=== PATIENT | female | born 1940 | race Caucasian/White ===

== ENCOUNTER 2021-08-31 04:05 | Emergency (ER) | payer OTHER ==
[2021-08-31 04:47] VITALS: BMI 22.0
[2021-08-31 05:13] LABS: HEMATOCRIT 31.4 % (32.4-45.2); HEMOGLOBIN 10.3 GM/dL (10.7-15.3); MCH 28.3 pg (25.7-33.7); MCHC 32.9 g/dl (32.0-36.0); MEAN CELL VOLUME 86.2 fl (80-96); MEAN PLT VOLUME 8.6 fl (7.5-11.1); PLATELET COUNT 287 10^3/uL (134-434); RBC 3.65 M/mm3 (3.60-5.2); RDW 15.4 % (11.6-15.6); WHITE BLOOD COUNT 7.8 K/mm3 (4.0-10.0)
[2021-08-31 05:58] LABS: INR 0.95 (0.83-1.09); PROTHROMBIN TIME (PATIENT) 11.1 SEC (9.7-13.0)
[2021-08-31 06:01] LABS: ACTIVATED PTT 32.3 SECONDS (25.2-36.5)
[2021-08-31 08:54] VITALS: BP 152/71; PULSE 87; TEMP 98.2
== END 2021-08-31 09:12 ==
LOC: JER 04:05
DX: R04.0 Epistaxis (principal)
CPT/HCPCS: 36415; 85027; 85610; 85730; 99283-25

== ENCOUNTER 2022-07-08 21:45 | Inpatient (IN) | payer OTHER, BC ==
[2022-07-08 22:10] VITALS: BMI 23.8
[2022-07-09] MEDS ORDERED: ACETAMINOPHEN 1000 MG/100 ML BAG IVPB ONE (00:29)
[2022-07-09] MEDS ORDERED: ACETAMINOPHEN INJECTION 100 ML IVPB ONE ×2 (00:38→20:02)
[2022-07-09 00:55] LABS: EPI CELLS 14 /uL (0-25.1); HYALINE CASTS 1 /uL (0-3.1); URINE APPEARANCE CLEAR; URINE BACTERIA >9,000 /uL (0-1359); URINE BILIRUBIN NEGATIVE (NEGATIVE); URINE COLOR YELLOW; URINE GLUCOSE (UA) 3+ (NEGATIVE); URINE KETONE NEGATIVE (NEGATIVE); URINE LEUK ESTERASE 1+ (NEGATIVE); URINE NITRITE NEGATIVE (NEGATIVE); URINE PROTEIN NEGATIVE (NEGATIVE); URINE UROBILINOGEN 0.2 mg/dL (0.2-1.0); URINE WBC 32 /uL (0-25.8)
[2022-07-09 01:40] LABS: HEMATOCRIT 33.4 % (32.4-45.2); HEMOGLOBIN 11.1 GM/dL (10.7-15.3); MCH 29.7 pg (25.7-33.7); MCHC 33.1 g/dl (32.0-36.0); MEAN CELL VOLUME 89.7 fl (80-96); MEAN PLT VOLUME 8.5 fl (7.5-11.1); PLATELET COUNT 279 10^3/uL (134-434); RBC 3.72 M/mm3 (3.60-5.2); RDW 13.9 % (11.6-15.6); WHITE BLOOD COUNT 5.9 K/mm3 (4.0-10.0)
[2022-07-09] MEDS ORDERED: CEFTRIAXONE 1,000 MG in DEXTROSE 5%-WATER - 50 ML IVPB ONE (01:40)
[2022-07-09] MEDS ORDERED: DIPHTH,PERTUSS(ACELL),TET 0.5 ML DISP.SYRIN IM ONE ×2 (01:55→02:19)
[2022-07-09 01:56] LABS: INR 0.97 (0.83-1.09); PROTHROMBIN TIME (PATIENT) 11.2 SEC (9.7-13.0)
[2022-07-09 01:59] LABS: ACTIVATED PTT 35.1 SECONDS (25.2-36.5)
[2022-07-09] MEDS ORDERED: CEFTRIAXONE 1 GM/50 ML BAG ONE (02:19)
[2022-07-09 02:25] LABS: ALBUMIN 3.5 g/dl (3.4-5.0); MAGNESIUM 1.5 mg/dL (1.8-2.4)
[2022-07-09 02:26] LABS: BLOOD UREA NITROGEN 13.8 mg/dL (7-18)
[2022-07-09 02:28] LABS: CREATININE 0.7 mg/dL (0.55-1.3)
[2022-07-09 02:30] LABS: BILIRUBIN,TOTAL 0.2 mg/dL (0.2-1); TOT PROT 7.2 g/dl (6.4-8.2)
[2022-07-09 04:56] LABS: URINE RBC 279.6 /uL (0-23.9)
[2022-07-09 05:19] LABS: YEAST NONE SEEN (NEGATIVE)
[2022-07-09] MEDS ORDERED: ACETAMINOPHEN 1000 MG/100 ML BAG IVPB PRN (06:25)
[2022-07-09] MEDS ORDERED: ERGOCALCIFEROL (VIT D2) 50,000 UNIT (1.25 MG) CAPSULE PO SCH (07:15)
[2022-07-09] MEDS: INSULIN (LEVEMIR) 100 UNITS/ML UNITS SQ SCH (10:40)
[2022-07-09] MEDS ORDERED: GABAPENTIN 400 MG CAPSULE ONE ×2 (10:58→21:51)
[2022-07-09] MEDS ORDERED: BACLOFEN 10 MG TABLET (FP) ONE (10:58)
[2022-07-09] MEDS ORDERED: amLODIPine BESYLATE 5 MG TABLET (FP) ONE (10:58)
[2022-07-09] MEDS ORDERED: ENOXAPARIN NA (PORCINE) 40 MG/0.4 ML DISP.SYRIN SQ ONE (10:59)
[2022-07-09] MEDS ORDERED: LIDOCAINE 5% TOPICAL PATCH ONE (10:59)
[2022-07-09] MEDS: LIDOCAINE 5% TOPICAL PATCH TP SCH (11:31)
[2022-07-09] MEDS: ATORVASTATIN CA 10 MG TABLET (FP) PO SCH (11:32)
[2022-07-09] MEDS: CYANOCOBALAMIN 1,000 MCG TABLET (FP) PO SCH (11:32)
[2022-07-09] MEDS: ENOXAPARIN NA (PORCINE) 40 MG/0.4 ML DISP.SYRIN SQ SCH (11:32)
[2022-07-09] MEDS: BACLOFEN 10 MG TABLET (FP) PO SCH (11:32)
[2022-07-09] MEDS: amLODIPine BESYLATE 5 MG TABLET (FP) PO SCH (11:33)
[2022-07-09] MEDS: INSULIN SLIDING SCALE (NOVOLOG) 1 VIAL SQ SCH ×2 (11:57→17:05)
[2022-07-09] MEDS: GABAPENTIN 400 MG CAPSULE PO SCH ×2 (14:00→21:57)
[2022-07-09] MEDS: BRIMONIDINE TARTRATE 0.1% OPHTHALMIC 5 ML BOTTLE OS SCH ×2 (14:00→21:57)
[2022-07-09] MEDS ORDERED: DONEPEZIL HCL 5 MG TABLET (FP) ONE (21:51)
[2022-07-09] MEDS ORDERED: DONEPEZIL HCL 10 MG TABLET (FP) PO SCH (22:00)
[2022-07-09] MEDS ORDERED: [UNRECOGNIZED DRUG - OTHER] MC SCH (22:00)
[2022-07-09] MEDS ORDERED: LIDOCAINE PATCH REMOVAL MC SCH (22:00)
[2022-07-10] MEDS: BRIMONIDINE TARTRATE 0.1% OPHTHALMIC 5 ML BOTTLE OS SCH ×3 (05:44→23:02)
[2022-07-10] MEDS: GABAPENTIN 400 MG CAPSULE PO SCH ×3 (05:44→22:05)
[2022-07-10] MEDS: INSULIN SLIDING SCALE (NOVOLOG) 1 VIAL SQ SCH ×4 (06:46→16:48)
[2022-07-10 08:40] LABS: BASO % 0.8 % (0-2.0); EOS % 6.3 % (0-4.5); HEMOGLOBIN 11.8 GM/dL (10.7-15.3); LYMPH % 27.9 % (8-40); MCHC 34.7 g/dl (32.0-36.0); MEAN CELL VOLUME 89.2 fl (80-96); MEAN PLT VOLUME 8.4 fl (7.5-11.1); MONO % 6.8 % (3.8-10.2); NEUT % 58.2 % (42.8-82.8); PLATELET COUNT 289 10^3/uL (134-434); RBC 3.81 M/mm3 (3.60-5.2); RDW 13.8 % (11.6-15.6); WHITE BLOOD COUNT 7.5 K/mm3 (4.0-10.0)
[2022-07-10 08:58] LABS: BLOOD UREA NITROGEN 16.9 mg/dL (7-18)
[2022-07-10 09:01] LABS: CALCIUM 8.9 mg/dL (8.5-10.1)
[2022-07-10 09:05] LABS: CREATININE 0.5 mg/dL (0.55-1.3)
[2022-07-10] MEDS ORDERED: CEFTRIAXONE 1 GM in DEXTROSE 5%-WATER - 50 ML IVPB SCH (10:00)
[2022-07-10] MEDS: BACLOFEN 10 MG TABLET (FP) PO SCH (10:00)
[2022-07-10] MEDS: CYANOCOBALAMIN 1,000 MCG TABLET (FP) PO SCH (10:00)
[2022-07-10] MEDS: ENOXAPARIN NA (PORCINE) 40 MG/0.4 ML DISP.SYRIN SQ SCH (10:00)
[2022-07-10] MEDS: amLODIPine BESYLATE 5 MG TABLET (FP) PO SCH (10:01)
[2022-07-10] MEDS: LIDOCAINE 5% TOPICAL PATCH TP SCH (10:01)
[2022-07-10] MEDS: ATORVASTATIN CA 10 MG TABLET (FP) PO SCH (10:01)
[2022-07-10] MEDS: INSULIN (LEVEMIR) 100 UNITS/ML UNITS SQ SCH (10:06)
[2022-07-10] MEDS ORDERED: LIDOCAINE PATCH REMOVAL MC SCH (22:00)
[2022-07-10] MEDS: DONEPEZIL HCL 10 MG TABLET (FP) PO SCH (22:05)
[2022-07-10] MEDS: LIDOCAINE PATCH REMOVAL MC SCH (22:05)
[2022-07-11] MEDS: INSULIN (LEVEMIR) 100 UNITS/ML UNITS SQ SCH (06:36)
[2022-07-11] MEDS: BRIMONIDINE TARTRATE 0.1% OPHTHALMIC 5 ML BOTTLE OS SCH ×3 (06:36→21:20)
[2022-07-11] MEDS: GABAPENTIN 400 MG CAPSULE PO SCH ×3 (06:36→21:20)
[2022-07-11] MEDS: INSULIN SLIDING SCALE (NOVOLOG) 1 VIAL SQ SCH ×3 (06:37→17:40)
[2022-07-11] MEDS: ATORVASTATIN CA 10 MG TABLET (FP) PO SCH (10:43)
[2022-07-11] MEDS: ENOXAPARIN NA (PORCINE) 40 MG/0.4 ML DISP.SYRIN SQ SCH (10:43)
[2022-07-11] MEDS: amLODIPine BESYLATE 5 MG TABLET (FP) PO SCH (10:44)
[2022-07-11] MEDS: BACLOFEN 10 MG TABLET (FP) PO SCH (10:44)
[2022-07-11] MEDS: CEFTRIAXONE 1 GM in DEXTROSE 5%-WATER - 50 ML IVPB SCH (10:44)
[2022-07-11] MEDS: CYANOCOBALAMIN 1,000 MCG TABLET (FP) PO SCH (10:44)
[2022-07-11] MEDS: LIDOCAINE 5% TOPICAL PATCH TP SCH (10:45)
[2022-07-11] MEDS: LIDOCAINE PATCH REMOVAL MC SCH (21:20)
[2022-07-11] MEDS: DONEPEZIL HCL 10 MG TABLET (FP) PO SCH (21:20)
[2022-07-12 05:50] VITALS: RESP 20
[2022-07-12] MEDS: INSULIN SLIDING SCALE (NOVOLOG) 1 VIAL SQ SCH ×3 (06:09→16:55)
[2022-07-12] MEDS: BRIMONIDINE TARTRATE 0.1% OPHTHALMIC 5 ML BOTTLE OS SCH ×2 (06:09→15:22)
[2022-07-12] MEDS: GABAPENTIN 400 MG CAPSULE PO SCH ×2 (06:37→15:22)
[2022-07-12] MEDS: INSULIN (LEVEMIR) 100 UNITS/ML UNITS SQ SCH (06:37)
[2022-07-12] MEDS: ATORVASTATIN CA 10 MG TABLET (FP) PO SCH (10:54)
[2022-07-12] MEDS: CYANOCOBALAMIN 1,000 MCG TABLET (FP) PO SCH (10:54)
[2022-07-12] MEDS: BACLOFEN 10 MG TABLET (FP) PO SCH (10:55)
[2022-07-12] MEDS: CEFTRIAXONE 1 GM in DEXTROSE 5%-WATER - 50 ML IVPB SCH (10:55)
[2022-07-12] MEDS: amLODIPine BESYLATE 5 MG TABLET (FP) PO SCH (10:55)
[2022-07-12] MEDS: LIDOCAINE 5% TOPICAL PATCH TP SCH (10:55)
[2022-07-12] MEDS: ENOXAPARIN NA (PORCINE) 40 MG/0.4 ML DISP.SYRIN SQ SCH (10:55)
[2022-07-12 14:43] VITALS: BP 127/73; PULSE 83; TEMP 98.7
[2022-07-23] MEDS ORDERED: ERGOCALCIFEROL (VIT D2) 50,000 UNIT (1.25 MG) CAPSULE PO SCH (10:00)
== END 2022-07-12 18:00 | DRG 690 ==
LOC: JER 21:45 → JERBED 07-09 03:26 → OBSVTOIN 07-09 05:49 → J4W 07-09 22:05 → J7W 07-10 18:16
PROVIDERS: ADMIT Family Medicine; ATTEND Internal Medicine
DX: N39.0 Urinary tract infection, site not specified (principal); M79.672 Pain in left foot; M79.642 Pain in left hand; M79.641 Pain in right hand; I10 Essential (primary) hypertension; E78.5 Hyperlipidemia, unspecified; E11.9 Type 2 diabetes mellitus without complications; G89.29 Other chronic pain; S80.212A Abrasion, left knee, initial encounter; R29.6 Repeated falls; R76.8 Other specified abnormal immunological findings in serum; G30.9 Alzheimer's disease, unspecified; F02.80 Dementia in other diseases classified elsewhere, unspecified severity, without behavioral disturbance, psychotic disturbance, mood disturbance, and anxiety; Z79.4 Long term (current) use of insulin; W18.39XA Other fall on same level, initial encounter; Y92.098 Other place in other non-institutional residence as the place of occurrence of the external cause
CPT/HCPCS: 36415; 70450-TC; 71045-TC-FY; 72125-TC; 72170-TC-FY; 73562-TC-LT-FY; 73610-TC-LT-FY; 73630-TC-LT; 80048; 80053; 81003; 82962; 83036; 83735; 84484; 85025; 85027; 85610; 85730; 86850; 86900; 86901; 87086; 90715; 93005; 93010; 97116-GP; 97161-GP; 99285-25; C9803-CS; G0378; J0475; U0003; U0005